=== PATIENT | male | born 1970 | race Caucasian/White ===

== ENCOUNTER → 2019-07-22 10:33 | Outpatient (BNVA) | payer BC, SELFPAY | PROVIDERS: Family Provider Family Medicine; PCP Family Medicine; Visit Provider Family Medicine | DX: E78.1 Pure hyperglyceridemia (principal); M54.2 Cervicalgia; G89.29 Other chronic pain; M79.7 Fibromyalgia | CPT/HCPCS: 80053; 80373 ==

== ENCOUNTER → 2019-08-22 10:31 | Outpatient (BNVA) | payer BC, SELFPAY | PROVIDERS: Family Provider Family Medicine; PCP Family Medicine; Referring Provider Family Medicine; Visit Provider Anesthesiology Pain Medicine | DX: G89.29 Other chronic pain (principal); M47.812 Spondylosis without myelopathy or radiculopathy, cervical region; M54.12 Radiculopathy, cervical region; M62.838 Other muscle spasm; Z79.891 Long term (current) use of opiate analgesic | CPT/HCPCS: 99204; 99999 ==

== ENCOUNTER 2019-08-30 09:33 | Outpatient (CLI) | payer BC, SELFPAY ==
--- NOTE | 2019-08-30 09:30 | MR_ITS ---
WS: [id number] MRI CERVICAL SPINE NONCONTRAST TECHNIQUE: Sagittal T1, T2 and STIR imaging. Axial T2, gradient, and fiesta imaging. CLINICAL INFORMATION: neck and arm pain, COMPARISON: MRI cervical June 24, [address] November 05, 2014 FINDINGS: Straightening of the normal cervical lordosis. Mild disc bulging at C3-C4. Mild degenerative endplate -type changes throughout the cervical spine progressed since 2008. C2-C3: Normal. C3-C4: Mild disc osteophyte complex with endplate ridging. Mild bilateral bony foraminal narrowing. M ild facet arthropathy. C4-C5: No significant disc bulging. Spinal canal and foramen are patent. C5-C6: Mild disc bulging with endplate ridging. Mild facet arthropathy. Mild left greater than right bony foraminal narrowing. Spinal canal is patent. C6-C7: Disc osteophyte complex with endplate ridging. Mild left and no significant right foraminal na rrowing. Spinal canal is patent. C7-T1: Normal. Visualized brain stem structures: Normal. Prevertebral soft tissues: Normal. MR/MR cervical spin wo con* [id number] IMPRESSION: 1. Straightening of the normal cervical lordosis. No high-grade central canal narrowing. Cord signal is normal. 2. Osteophytic ridging with mild foraminal narrowing more prominent at left C3 -4, left C5-C6, and left C6-C7. 3. Mild disc osteophyte complexes at C3-C4 C5-C6 and C6-C7 without significant spinal canal narrowing.
== END 2019-08-30 09:34 | disposition home or self-care (01) ==
LOC: RADSHAW 09:34
PROVIDERS: Family Provider Family Medicine; PCP Family Medicine; Visit Provider Anesthesiology Pain Medicine
DX: M54.12 Radiculopathy, cervical region (principal); M25.78 Osteophyte, vertebrae; M54.2 Cervicalgia
CPT/HCPCS: 72141

== ENCOUNTER → 2019-11-20 09:03 | Outpatient (BNVA) | payer BC, SELFPAY | PROVIDERS: Family Provider Family Medicine; PCP Family Medicine; Visit Provider Family Medicine | DX: E78.1 Pure hyperglyceridemia (principal) | CPT/HCPCS: 80053; 80061 ==

== ENCOUNTER → 2019-11-21 14:44 | Outpatient (BNVA) | payer BC, SELFPAY | PROVIDERS: Family Provider Family Medicine; PCP Family Medicine; Visit Provider Anesthesiology Pain Medicine | DX: G89.29 Other chronic pain (principal); M47.812 Spondylosis without myelopathy or radiculopathy, cervical region; M54.12 Radiculopathy, cervical region; M62.838 Other muscle spasm; Z79.891 Long term (current) use of opiate analgesic | CPT/HCPCS: 99213 ==

== ENCOUNTER 2019-11-28 12:31 | Outpatient (RCR) | payer BC, SELFPAY | END 2019-12-24 23:59 | disposition home or self-care (01) | LOC: SPT 12:31 | PROVIDERS: PCP Family Medicine; Referring Provider Anesthesiology Pain Medicine; Visit Provider Anesthesiology Pain Medicine | DX: M47.812 Spondylosis without myelopathy or radiculopathy, cervical region (principal) | CPT/HCPCS: 97110; 97162 ==

== ENCOUNTER 2019-12-25 06:00 | Outpatient (RCR) | payer BC, SELFPAY | END 2020-01-24 23:59 | disposition home or self-care (01) | LOC: SPT 06:00 | PROVIDERS: PCP Family Medicine; Referring Provider Anesthesiology Pain Medicine; Visit Provider Anesthesiology Pain Medicine | DX: M47.812 Spondylosis without myelopathy or radiculopathy, cervical region (principal); M62.838 Other muscle spasm | CPT/HCPCS: 97110 ==

== ENCOUNTER → 2020-01-22 08:48 | Outpatient (BNVA) | payer BC, SELFPAY | PROVIDERS: Family Provider Family Medicine; PCP Family Medicine; Visit Provider Anesthesiology Pain Medicine | DX: G89.29 Other chronic pain (principal); M54.12 Radiculopathy, cervical region; M47.812 Spondylosis without myelopathy or radiculopathy, cervical region; M79.7 Fibromyalgia; M62.838 Other muscle spasm; Z79.891 Long term (current) use of opiate analgesic | CPT/HCPCS: 99213; 99214 ==

== ENCOUNTER → 2020-02-05 09:47 | Outpatient (BNVA) | payer BC, SELFPAY | PROVIDERS: Family Provider Family Medicine; PCP Family Medicine; Visit Provider Anesthesiology Pain Medicine | DX: G89.29 Other chronic pain (principal); M54.42 Lumbago with sciatica, left side; M54.9 Dorsalgia, unspecified; M54.12 Radiculopathy, cervical region; M47.812 Spondylosis without myelopathy or radiculopathy, cervical region; M79.7 Fibromyalgia; M62.838 Other muscle spasm; Z79.891 Long term (current) use of opiate analgesic | CPT/HCPCS: 99213; 99214 ==

== ENCOUNTER → 2020-05-18 09:56 | Outpatient (BNVA) | payer BC, SELFPAY | PROVIDERS: Family Provider Family Medicine; PCP Family Medicine; Visit Provider Family Medicine | DX: R35.1 Nocturia (principal); E78.1 Pure hyperglyceridemia; Z13.6 Encounter for screening for cardiovascular disorders | CPT/HCPCS: 80053; 80061; 84153 ==

== ENCOUNTER → 2020-05-19 09:24 | Outpatient (BNVA) | payer BC, SELFPAY | PROVIDERS: Family Provider Family Medicine; PCP Family Medicine; Visit Provider Anesthesiology Pain Medicine | DX: G89.29 Other chronic pain (principal); M47.812 Spondylosis without myelopathy or radiculopathy, cervical region; M54.12 Radiculopathy, cervical region; M54.42 Lumbago with sciatica, left side; M79.7 Fibromyalgia; M54.9 Dorsalgia, unspecified; M62.838 Other muscle spasm; Z79.891 Long term (current) use of opiate analgesic | CPT/HCPCS: 99213 ==

== ENCOUNTER → 2020-06-16 08:48 | Outpatient (BNVA) | payer BC, SELFPAY | PROVIDERS: Family Provider Family Medicine; PCP Family Medicine; Visit Provider Anesthesiology Pain Medicine | DX: M54.9 Dorsalgia, unspecified (principal); M54.12 Radiculopathy, cervical region; M54.2 Cervicalgia; M54.5 Low back pain; G89.29 Other chronic pain; M47.812 Spondylosis without myelopathy or radiculopathy, cervical region; M62.838 Other muscle spasm | CPT/HCPCS: 99213 ==

== ENCOUNTER → 2020-09-22 10:09 | Outpatient (BNVA) | payer MEDICAID, SELFPAY | PROVIDERS: PCP Family Medicine; Visit Provider Anesthesiology Pain Medicine | DX: G89.29 Other chronic pain (principal); M54.42 Lumbago with sciatica, left side; M54.9 Dorsalgia, unspecified; M79.7 Fibromyalgia; M54.12 Radiculopathy, cervical region; M47.812 Spondylosis without myelopathy or radiculopathy, cervical region; M79.602 Pain in left arm; M62.838 Other muscle spasm; Z79.891 Long term (current) use of opiate analgesic | CPT/HCPCS: 99214 ==

== ENCOUNTER 2020-09-24 10:48 | Outpatient (CLI) | payer MEDICAID, SELFPAY ==
--- NOTE | 2020-09-24 11:00 | CT_ITS ---
WS: [id number] CT SINUSES TECHNIQUE: Noncontrast CT of the paranasal sinuses with coronal and sagittal reformatted images. CLINICAL INFORMATION: persistent sinus congestion COMPARISON: None. DLP: 331.[address] scans at [facility] use at least one of these dose optimization techniques: automat ed exposure control; mA and/or kV adjustment per patient size (includes targeted exams where dose is matched to clinical indication); or iterative reconstruction. FINDINGS: Mild left to right nasal septal deviation measuring 2-3 mm. Mild narrowing of the ostiomeatal units b ilaterally which remain patent. Trace mucosal thickening in the maxillary sinuses. Right maxillary re tention cyst measuring 9 mm. Retention cyst left maxillary sinus measuring 7 mm. Frontal sinuses are well aerated. Normal frontal ethmoidal recesses. Mild mucosal thickening ethmoid air cells. Frothy secretions in the right sphenoid sinus consistent with sinusitis. Opacification rig ht sphenoid sinus ostia. Left sphenoid sinus is well aerated. Mastoid air cells are well aerated. Pneumatization of the petrous apices. Normal parapharyngeal fat. Normal posterior nasopharynx. CT/CT sinus wo con* [id number] IMPRESSION: 1. Mild nasal septal deviation measuring 2-3 mm 2. Frothy secretions consistent with sinusitis right sphenoid sinus locule. Op acification right sphenoid sinus ostia. 3. Mild narrowing of the ostiomeatal units bilaterally which remain patent. 4. 9 mm retention cyst in the right maxillary sinus. Tiny left maxillary reten tion cyst measuring 7 mm. 5. Trace mucosal thickening in the maxillary sinuses.
== END 2020-09-24 10:49 | disposition home or self-care (01) ==
PROVIDERS: PCP Family Medicine; Visit Provider Family Medicine
DX: R09.81 Nasal congestion (principal); J34.2 Deviated nasal septum; M27.40 Unspecified cyst of jaw
CPT/HCPCS: 70486

== ENCOUNTER → 2020-09-28 13:44 | Outpatient (BNVA) | payer MEDICAID, SELFPAY | PROVIDERS: PCP Family Medicine; Visit Provider Anesthesiology Pain Medicine | DX: G89.29 Other chronic pain (principal); M54.12 Radiculopathy, cervical region; Z79.891 Long term (current) use of opiate analgesic | CPT/HCPCS: 62321; J1100 ==

== ENCOUNTER → 2020-10-20 08:52 | Outpatient (BNVA) | payer MEDICAID, SELFPAY | PROVIDERS: PCP Family Medicine; Visit Provider Anesthesiology Pain Medicine | DX: G89.29 Other chronic pain (principal); M54.12 Radiculopathy, cervical region; M47.812 Spondylosis without myelopathy or radiculopathy, cervical region; M54.9 Dorsalgia, unspecified; M62.838 Other muscle spasm; Z79.891 Long term (current) use of opiate analgesic | CPT/HCPCS: 99214 ==

== ENCOUNTER → 2020-11-17 09:15 | Outpatient (BNVA) | payer MEDICAID, SELFPAY | PROVIDERS: PCP Family Medicine; Visit Provider Anesthesiology Pain Medicine | DX: G89.29 Other chronic pain (principal); M54.42 Lumbago with sciatica, left side; M54.9 Dorsalgia, unspecified; M79.7 Fibromyalgia; M54.12 Radiculopathy, cervical region; M47.812 Spondylosis without myelopathy or radiculopathy, cervical region; M62.838 Other muscle spasm; Z79.899 Other long term (current) drug therapy; Z87.891 Personal history of nicotine dependence | CPT/HCPCS: 99214 ==

== ENCOUNTER → 2020-12-15 10:30 | Outpatient (BNVA) | payer MEDICAID, SELFPAY | PROVIDERS: PCP Family Medicine; Visit Provider Anesthesiology Pain Medicine | DX: G89.29 Other chronic pain (principal); M54.42 Lumbago with sciatica, left side; M54.9 Dorsalgia, unspecified; M79.7 Fibromyalgia; M54.12 Radiculopathy, cervical region; M47.812 Spondylosis without myelopathy or radiculopathy, cervical region; M62.838 Other muscle spasm; M79.603 Pain in arm, unspecified; Z79.899 Other long term (current) drug therapy; Z87.891 Personal history of nicotine dependence | CPT/HCPCS: 99214 ==

== ENCOUNTER → 2021-06-24 09:04 | Outpatient (BNVA) | payer MEDICAID, SELFPAY | PROVIDERS: PCP Family Medicine; Visit Provider Family Medicine | DX: R35.1 Nocturia (principal); Z13.6 Encounter for screening for cardiovascular disorders | CPT/HCPCS: 80053; 80061; 84153; 85025 ==